=== PATIENT | male | born 1980 | race African-American/Black ===

== ENCOUNTER 2024-01-03 12:54 | Emergency (ER) | payer MEDICAID, SELFPAY ==
[2024-01-03 12:57] VITALS: BP 147/91; PULSE 92; RESP 18; TEMP 36.6; O2SAT 98
--- NOTE | 2024-01-03 12:57 | ED_ITS ---
HPI - General Adult General Chief complaint: Back Pain/Injury Stated complaint: Back Pain No Injury Time Seen by Provider: 01/03/24 13:30 Source: patient Mode of arrival: ambulatory Limitations: no limitations History of Present Illness HPI narrative: patient is a 43-year-old male who presents emergency department for evaluation of right lower back pain. He reports onset 3 days ago. He noticed the pain began after doing housework, reports that he had turned to the side and suddenly developed pain on this right side. Pain is nonradiating. Reports history of similar pain in the past but feels this was more severe. He trialed acetaminophen without much improvement.. When asked he does admit to having mild URI symptoms cough and runny nose over the past 3 days. Denies fevers, chills, nausea, vomiting, constipation, diarrhea, hematuria, urinary frequency/ urgency / hesitancy, history of IVDA Related Data Previous Rx's ?Medication ?Instructions ?Recorded cyclobenzaprine 10 mg tablet 10 mg PO TID PRN muscle spasm #20 01/03/24 tabs Allergies Allergy/AdvReac Type Severity Reaction Status Date / Time No Known Allergies Allergy Verified 01/03/24 12:59 Review of Systems Review of Systems: Yes all other systems are reviewed and are negative PMFSH Past Medical History Attestation statement: The following information was validated with the patient. Source: old records reviewed Social History Social History Advance Directives: No Advance Directives Information Provided: Yes Physical Exam ED Vital Signs: Vital Signs - 24 hr 01/03/24 12:57 Temperature 98 F Pulse Rate 92 Respiratory Rate 18 Blood Pressure 147/91 H Pulse Oximetry 98 Oxygen Delivery Method Room Air BMI result Body Mass Index 30.0 Appearance: Alert.?Oriented to person, place and time. No acute distress.?Normal affect. Eyes: Pupils equal, round and reactive to light.? ENT: Pharynx normal.?? Neck: Normal inspection.? Neck supple.?? CVS: Heart sounds normal. Normal heart rate and rhythm.? Pulses normal.?? Respiratory: No respiratory distress.? Lung sounds clear to auscultation bilaterally?? Abdomen: Soft and non-tender. Normoactive bowel sounds. back: right-sided lumbosacral paraspinal tenderness upon palpation. No rashes. No lesions. Straight leg test on the right positive. Skin: Skin warm and dry.? Normal skin color.? Extremities: No lower extremity edema.? No calf ttp? Neuro: Moves all extremities spontaneously. Sensation intact bilaterally. CN II- XII intact. No focal neuro deficits. Ambulates with normal steady gait. Course Course Course Narrative: This is an RME: Additional HPI, ROS, PE not included below will be deferred to primary provider. 43 yo m presents with lower back pain X 3 days. Started after house work. No red flag symptoms. Ambulatory to triage. Also URI symptoms X 3 days. Medications Administered Discontinued Medications Generic Name Dose Route Start Last Admin Trade Name Harjinder PRN Reason Stop Dose Admin Ketorolac Tromethamine 30 mg 01/03/24 13:52 01/03/24 14:42 Ketorolac Tromethamine 30 Mg/Ml Vial IM 01/03/24 13:53 30 mg ONCE ONE Administration Medical Decision Making Medical Decision Making [facility] Narrative: Patient is a 43-year-old male who presents emergency department for evaluation of right lower back pain as per HPI. Based on history and physical examination,Pain is most consistent with muscular pain, although cannot completely exclude herniated disc. Pain has improved with Toradol, still present 11/23. On neurological exam there are no deficits. Not consistent with spinal fracture, spinal infection, epidural abscess, AAA, epidural abscess, or dissection. No high risk past medical history including incontinence, fever, immunosuppression, recent surgery or lumbar puncture, coagulopathy, significant trauma, recent unintentional weight loss, pulsatile mass, history of cancer, history of TB, history of IV drug use that would warrant MRI or CT. Not consistent with pyelonephritis, urinary tract infection, renal calculi, appendicitis, diverticulitis. On exam no concern for cauda equina syndrome. No imaging is currently indicated at this time. Plan for discharge home with prescription for muscle relaxant and NSAID, and follow-up with primary care provider, and patient agreed with plan. Differential Diagnosis Differential Diagnoses: The differential diagnosis associated with the presentation includes ( see narrative above) Admission/Observation Consideration of admission/observation: Escalation of care including admission/observation considered ( see narrative above) Lab Data [facility] Lab Attestation statement: I reviewed the patient's lab results. ( viral panel negative) Labs: Lab Results 01/03/24 Range/Units 13:04 Influenza Type A (PCR) NEGATIVE (Negative) Influenza Type B (PCR) NEGATIVE (Negative) RSV RNA Qual (PCR) NEGATIVE (Negative) SARS-CoV-2 RNA (RT-PCR) NEGATIVE (Negative) Tests considered The following testing was considered but not selected: see narrative above Prescription Management I considered prescription management with: Pain Medication Discharge Plan Discharge Clinical Impression: Strain of lumbar region Patient Disposition: Home, Self-Care Instructions: Low Back Strain (ED) Additional Instructions: You can take ibuprofen 200 mg, 3 tablets (600mg) every 6-8 hours as needed for pain, in addition to Tylenol 500 mg, 2 tablets (1,000mg) every 4-6 hours as needed for pain, but not to exceed 3 doses daily (3,000mg).? For pain that is unrelieved by Tylenol and ibuprofen as sent a prescription for a muscle relaxer to your pharmacy. Cyclobenzaprine / Flexeril. This medication may make you drowsy. You should not drive, drink alcohol, or work while taking this medication. Please contact your primary care provider to arrange for a follow-up visit next week. Return back to emergency department any new or worsening symptoms or concerns. Prescriptions: New cyclobenzaprine 10 mg tablet 10 mg PO TID PRN (Reason: muscle spasm) Qty: 20 0RF Referrals: Physician,None [Primary Care Provider] - Print Language: Syriac
[2024-01-03 14:03] LABS: Influenza A PCR NEGATIVE (Negative); Influenza B PCR NEGATIVE (Negative); Resp Syncy Virus RNA Qual PCR NEGATIVE (Negative); SARS COV2 PCR INHOUSE NEGATIVE (Negative)
[2024-01-03] MEDS: Ketorolac Tromethamine 30 MG/ML VIAL IM (14:42)
[2024-01-03 15:50] VITALS: BP 154/92; PULSE 76; RESP 18; TEMP 36.6; O2SAT 98
[2024-01-03 15:54] VITALS: BP 154/92; PULSE 76; RESP 18; TEMP 36.6; O2SAT 98
== END 2024-01-03 15:54 | disposition home or self-care (01) ==
PROVIDERS: Physician Assistant; Emergency Provider Emergency Medicine
DX: S39.012A Strain of muscle, fascia and tendon of lower back, initial encounter (principal); X58.XXXA Exposure to other specified factors, initial encounter; Y93.89 Activity, other specified; Y92.9 Unspecified place or not applicable; Y99.9 Unspecified external cause status
CPT/HCPCS: 0241U; 96372; 99284; J1885